=== PATIENT | male | born 1990 | race Caucasian/White ===

== ENCOUNTER 2016-12-02 03:22 | Emergency (ER) | payer SELFPAY ==
[~2016-12-02] VITALS: Ht 190.5 cm; Wt 158.8 kg
[~2016-12-02 03:22] MED LIST: AMLO10TA2; HYDR-2941 PO; HYDR-3812 PO; IBP800T PO; NAPR550T PO; OXYC-12 PO; PHEN-452 PO; TOPAMAX PO; TRIA1CAP PO
[2016-12-02] MEDS ORDERED: RT-ALBUTEROL/IPRATROPIUM 3 ML (DUONEB) VIAL INH ONE (04:15)
[2016-12-02] MEDS ORDERED: RX-ALBUTEROL INHALER (VENTOLIN HFA) 18 GM IH STA (04:46)
--- NOTE | 2016-12-02 04:53 | ED Respiratory ---
General Chief Complaint: Respiratory Problems Stated Complaint: SOB Nursing Triage Note: Pt c/o SOA and coughing for approx 10 days. Pt reports SOA is worse after talking. Source: patient Exam Limitations: no limitations History of Present Illness Time seen by provider: 03:55 Initial Comments This 26-year-old gentleman presents to the emergency room with complaints of cough and shortness of breath. He was treated with amoxicillin about one month ago but cough and shortness of breath persist. He denies any fever. He sometimes has a dull chest tightness centrally. He does not smoke. He denies any other symptoms. Talking tends to exacerbate his cough. Allergies and Home Medications Allergies Coded Allergies: No Known Drug Allergies (Verified , 10/09/08) Home Medications Amlodipine Besylate 10 Mg Tablet, #30 (Reported) Azithromycin 250 Mg Tablet, 250 MG PO UD, #6 TAKE 2 TABLETS ON DAY ONE THEN TAKE 1 TABLET DAILY FOR FOUR MORE DAYS Prescribed by: ARCHANA LOPEZ on 12/02/16453 Prednisone 20 Mg Tab, 20 MG PO DAILY, #5 Prescribed by: ARCHANA LOPEZ on 12/02/164 Constitutional: no symptoms reported EENTM: no symptoms reported Respiratory: see HPI Cardiovascular: no symptoms reported Gastrointestinal: no symptoms reported Genitourinary: no symptoms reported Musculoskeletal: no symptoms reported Skin: no symptoms reported Psychiatric/Neurological: No Symptoms Reported Hematologic/Lymphatic: No Symptoms Reported Past Jmwupor-Cwmdcy-Xkujis Hx Patient Social History Alcohol Use: Denies Use Recreational Drug Use: No Smoking Status: Never a Smoker Recent Foreign Travel: No Contact w/Someone Who Travel: No Recent Infectious Disease Expo: No Recent Hopitalizations: No Seasonal Allergies Seasonal Allergies: No Surgeries HX Surgeries: Yes (left ankle/left knee/right shoulder) Surgeries: Orthopedic Respiratory Hx Respiratory Disorders: No Cardiovascular Hx Cardiac Disorders: Yes (takes amlodipine "as needed") Cardiac Disorders: Hypertension, Syncope Neurological Hx Neurological Disorders: No Reproductive System Hx Reproductive Disorders: No Sexually Transmitted Disease: No Genitourinary Hx Genitourinary Disorders: No Gastrointestinal Hx Gastrointestinal Disorders: No Musculoskeletal Hx Musculoskeletal Disorders: Yes (BROKEN LEFT ANKLE, chronic chest pain) Musculoskeletal Disorders: Chronic Back Pain (history of vertebral fracture) Endocrine Hx Endocrine Disorders: Yes (prediabetes, morbid obesity) HEENT HX ENT Disorders: No Cancer Hx Cancer: No Psychosocial Hx Psychiatric Problems: No Blood Transfusions Hx Blood Disorders: No Family Medical History Significant Family History: No Pertinent Family Hx Physical Exam Vital Signs Vital Sign - Last 12Hours 12/02/16 03:36 Temp 99.4 Pulse 118 Resp 20 B/P (MAP) 165/102 Pulse Ox 97 O2 Delivery Room Air Capillary Refill : Less Than 3 Seconds General Appearance: WD/WN, no apparent distress, obese HEENT: PERRL/EOMI, normal ENT inspection, TMs normal, pharynx normal Neck: normal inspection Respiratory: no respiratory distress, no accessory muscle use, wheezing (slight ), other (slight tachypnea, talking triggers cough) Cardiovascular: regular rate, rhythm, no edema, no murmur Extremities: normal inspection, no pedal edema Neurologic/Psychiatric: pickle cutter II-XII nml as tested, no motor/sensory deficits, alert, normal mood/affect, oriented x 3 Skin: normal color, warm/dry Progress/Results/Core Measures Results/Orders My Orders Orders - ARCHANA PAYAN MD Albuterol/Ipra Inhalation Soln (Duoneb I (12/02/16 04:15) Svn Sm Volume Nebulizer Rt-Rfs (12/02/16 04:03) Chest Pa/Lat (2 View) (12/02/16 04:03) Rx-Albuterol Inhaler (Rx-Ventolin Hfa) (12/02/16 04:46) Rx-Albuterol Inhaler (Rx-Proair) (12/02/16 05:00) Medications Given in ED Vital Signs/I&O Vital Sign - Last 12Hours 12/02/16 12/02/16 12/02/16 03:36 04:10 05:15 Temp 99.4 99.4 Pulse 118 107 Resp 20 20 B/P (MAP) 165/102 Pulse Ox 97 94 96 O2 Delivery Room Air Blood Pressure Mean: 123 Progress Note : Progress Note Chest x-ray was unremarkable by my interpretation. Patient felt significantly better after a DuoNeb treatment. An albuterol inhaler was dispensed. Diagnostic Imaging Diagonstic Imaging: Xray Plain Films/CT/US/NM/MRI: chest Comments Two-view chest x-ray viewed by me. Report not yet available. No consolidation or infiltrate appreciated. No other acute abnormalities. Departure Impression Impression: Primary Impression: Acute bronchitis Qualified Codes: J20.9 - Acute bronchitis, unspecified Disposition: 01 HOME, SELF-CARE Condition: Improved Departure-Patient Inst. Decision time for Depature: 04:40 Referrals: [facility] (PCP/Family) Primary Care Physician Patient Instructions: Acute Bronchitis, Adult (DC) Add. Discharge Instructions: Follow-up with your primary care provider within the next week. You may use the inhaler up to 4 puffs every 4 hour period of time. Complete the steroids and antibiotic as prescribed. Return to care if symptoms worsen. Work toward weight loss to reduce strain on the respiratory system. All discharge instructions reviewed with patient and/or family. Voiced understanding. Scripts Azithromycin (Azithromycin) 250 Mg Tablet 250 MG PO UD, #6 TAB TAKE 2 TABLETS ON DAY ONE THEN TAKE 1 TABLET DAILY FOR FOUR MORE DAYS Prov: ARCHANA PAYAN MD 12/02/16 Prednisone (Prednisone) 20 Mg Tab 20 MG PO DAILY, #5 TAB Prov: ARCHANA PAYAN MD 12/02/16 Copy Copies To 1: ANDRÉS PATEL MD, JOSHUA T MD Dec 02, 2016 04:53
[2016-12-02] MEDS ORDERED: AZIT250T5 PO (04:54)
[2016-12-02] MEDS ORDERED: PRD20T PO (04:54)
[2016-12-02] MEDS ORDERED: RX-ALBUTEROL INHALER (PROAIR) 8 GM IH ONE (05:00)
[2016-12-02 05:15] VITALS: BP 157/100
--- NOTE | 2016-12-02 06:22 | Diagnostic Imaging Report ---
Clinical indication: Patient with shortness of breath, chest pain x1 month. Exam: Chest x-ray PA and lateral views. Comparisons: Chest x-ray dated 06/08/2016. Findings: Lungs/pleura: Suspected mild bibasilar atelectasis. Otherwise, lungs are clear. There is no pneumothorax. There is no pleural effusion. Mediastinum: Unremarkable. Pulmonary vasculature: Unremarkable. Heart: Unremarkable. Bones/extrathoracic soft tissue: Unremarkable. Impression: There is mild bibasilar atelectasis. Otherwise, there is no radiographic evidence of acute cardiopulmonary process. Dictated by: Dictated on workstation # [id number]
== END 2016-12-02 05:15 | disposition home or self-care (01) ==
LOC: EDUNIT# 03:22 → ER 03:24
DX: J20.9 Acute bronchitis, unspecified (principal); I10 Essential (primary) hypertension; E66.9 Obesity, unspecified
CPT/HCPCS: 71020; 94640; 99283

== ENCOUNTER 2016-12-06 17:42 | Emergency (ER) | payer SELFPAY ==
[~2016-12-06] VITALS: Ht 193 cm; Wt 158.8 kg
[~2016-12-06 17:42] MED LIST changes: +AZIT250T5 PO; +PRD20T PO
--- NOTE | 2016-12-06 18:29 | Diagnostic Imaging Report ---
INDICATION: Cough. Continuously chocked up after talking. TECHNIQUE: Two view chest 6:28 p.m. CORRELATION STUDY: 12/02/2016 FINDINGS: The heart size, mediastinal configuration and pulmonary vasculature are within normal limits. The lungs are clear with no consolidating infiltrate. There is no significant pleural effusion or pneumothorax. Visualized osseous structures are unremarkable. IMPRESSION: 1. Negative for acute findings of the chest. Dictated by: Dictated on workstation # [id number]
[2016-12-06] MEDS ORDERED: ACET-789 PO (18:46)
[2016-12-06] MEDS ORDERED: RT-ALBUINH IH (18:46)
--- NOTE | 2016-12-06 18:46 | ED Cough/URI ---
General Chief Complaint: Cough/Cold/Flu Symptoms Stated Complaint: BRONCHITIS/COUGH/THROAT DISCOMFORT Nursing Triage Note: AMB TO ED REPORTS WAS SEEN IN ED 4 DAY AGO WAS PUT ON Z PACK AND PREDISONE. Source: patient Exam Limitations: no limitations History of Present Illness Time seen by provider: 18:42 Initial Comments To ER with a persistent cough. Cough is nonproductive. He was seen here 4 days ago and put on azithromycin, prednisone and an inhaler. Denies any improvement. No fevers. Occasional nasal congestion for which he's been using nygr-hef-zcyrhuy Flonase. Timing/Duration: week Severity/Quality: dry cough Associated Symptoms: cough Allergies and Home Medications Allergies Coded Allergies: No Known Drug Allergies (Verified , 10/09/08) Home Medications Amlodipine Besylate 10 Mg Tablet, #30 (Reported) Azithromycin 250 Mg Tablet, 250 MG PO UD, #6 TAKE 2 TABLETS ON DAY ONE THEN TAKE 1 TABLET DAILY FOR FOUR MORE DAYS Prescribed by: ARCHANA LOPEZ on 12/02/164 Prednisone 20 Mg Tab, 20 MG PO DAILY, #5 Prescribed by: ARCHANA LOPEZ on 12/02/164 Constitutional: see HPI EENTM: see HPI Respiratory: no symptoms reported Cardiovascular: no symptoms reported Genitourinary: no symptoms reported Musculoskeletal: no symptoms reported Past Ykrvfsj-Awliaa-Xkmnrm Hx Patient Social History Alcohol Use: Denies Use Recreational Drug Use: No Smoking Status: Never a Smoker Recent Foreign Travel: No Contact w/Someone Who Travel: No Recent Infectious Disease Expo: No Recent Hopitalizations: No Seasonal Allergies Seasonal Allergies: No Surgeries HX Surgeries: Yes (left ankle/left knee/right shoulder) Surgeries: Orthopedic Respiratory Hx Respiratory Disorders: No Cardiovascular Hx Cardiac Disorders: Yes (takes amlodipine "as needed") Cardiac Disorders: Hypertension, Syncope Neurological Hx Neurological Disorders: No Reproductive System Hx Reproductive Disorders: No Sexually Transmitted Disease: No Genitourinary Hx Genitourinary Disorders: No Gastrointestinal Hx Gastrointestinal Disorders: No Musculoskeletal Hx Musculoskeletal Disorders: Yes (BROKEN LEFT ANKLE, chronic chest pain) Musculoskeletal Disorders: Chronic Back Pain Endocrine Hx Endocrine Disorders: Yes (prediabetes, morbid obesity) HEENT HX ENT Disorders: No Cancer Hx Cancer: No Psychosocial Hx Psychiatric Problems: No Blood Transfusions Hx Blood Disorders: No Family Medical History Significant Family History: No Pertinent Family Hx Physical Exam Vital Signs Vital Sign - Last 12Hours 12/06/16 17:53 Temp 98.3 Pulse 101 Resp 18 B/P (MAP) 133/64 O2 Delivery Room Air Capillary Refill : Less Than 3 Seconds General Appearance: WD/WN, no apparent distress, obese, other (patient does have a cough that pronounced when he is talking.) HEENT: PERRL/EOMI, normal ENT inspection Neck: non-tender, full range of motion Respiratory: no respiratory distress, no accessory muscle use Gastrointestinal: normal bowel sounds, non tender, soft Neurologic/Psychiatric: alert, normal mood/affect, oriented x 3 Skin: normal color, warm/dry Progress/Results/Core Measures Results/Orders My Orders Orders - RAJNI MELENDEZ APRN Chest Pa/Lat (2 View) (12/06/16 18:04) Vital Signs/I&O Vital Sign - Last 12Hours 12/06/16 17:53 Temp 98.3 Pulse 101 Resp 18 B/P (MAP) 133/64 O2 Delivery Room Air Blood Pressure Mean: 87 Departure Impression Impression: Primary Impression: Bronchitis Additional Impression: Influenza Disposition: 01 HOME, SELF-CARE Condition: Stable Departure-Patient Inst. Decision time for Depature: 18:44 Referrals: [facility] (PCP/Family) Primary Care Physician Patient Instructions: Cough, Adult (DC) Add. Discharge Instructions: 1. Medication as directed 2. This cough is likely viral in nature which explains why you didn't improve with steroids. This may take 2-3 weeks to improve 3. All discharge instructions reviewed with patient and/or family. Voiced understanding. Scripts Acetaminophen with Codeine (Tylenol with Codeine #3 Tablet) 1 Each Tablet 1 EACH PO Q6H Y for COUGH, #14 TAB Prov: RAJNI MELENDEZ APRN 12/06/16 Albuterol Sulfate (PROAIR HFA) 1 Puff Puff 2 PUFF IH Q4H, #1 EACH 1 PUFF = 90 MCG Prov: RAJNI MELENDEZ APRN 12/06/16 RAJNI MELENDEZ APRN December 06, 2016 18:46
[2016-12-06 18:50] VITALS: BP 182/93
== END 2016-12-06 18:50 | disposition home or self-care (01) ==
LOC: EDUNIT# 17:42 → ER 17:44
DX: J40 Bronchitis, not specified as acute or chronic (principal); J10.1 Influenza due to other identified influenza virus with other respiratory manifestations
CPT/HCPCS: 71020; 99282

== ENCOUNTER 2017-12-12 16:31 | Emergency (ER) | payer SELFPAY ==
[~2017-12-12] VITALS: Ht 190.5 cm; Wt 140.6 kg
[~2017-12-12 16:31] MED LIST changes: +ACET-789 PO; +ACHD5005 PO; +AZIT250T12 PO; -AZIT250T5 PO; -HYDR-3812 PO; +RT-ALBUINH IH
--- NOTE | 2017-12-12 16:48 | ED Back Pain ---
General Chief Complaint: Back Problems Stated Complaint: R SIDE LOWER BACK PAIN Source of Information: Patient Exam Limitations: No Limitations History of Present Illness Date Seen by Provider: December 12, 2017 Time Seen by Provider: 16:46 Initial Comments To ER with complaints of right posterior flank pain. This has been intermittent for about 2 weeks. At the onset of this pain it was described as knifelike very sharp and unchanged by movement. He made an appointment with primary care for the next day, but upon awakening the next morning the pain was gone. He decided this was likely musculoskeletal and canceled his doctor's appointment. This then recurred today, no radiation of the pain, no fevers or chills, no nausea or vomiting and no dysuria. Minimal anterior right sided abdominal pain. No history of this. Timing/Duration: Getting Worse, Intermittent Severity: Moderate Associated Symptoms: lower back pain Allergies and Home Medications Allergies Coded Allergies: No Known Drug Allergies (Verified , 10/09/08) Home Medications Acetaminophen with Codeine 1 Each Tablet, 1 EACH PO Q6H PRN for COUGH Prescribed by: RAJNI MELENDEZ on 12/06/161845 Albuterol Sulfate 1 Puff Puff, 2 PUFF IH Q4H 1 PUFF = 90 MCG Prescribed by: RAJNI MELENDEZ on 12/06/161845 Azithromycin 250 Mg Tablet, 250 MG PO UD TAKE 2 TABLETS ON DAY ONE THEN TAKE 1 TABLET DAILY FOR FOUR MORE DAYS Prescribed by: ARCHANA LOPEZ on 12/02/16453 Cyclobenzaprine HCl 5 Mg Tablet, 5 MG PO TID Prescribed by: RAJNI MELENDEZ on 12/12/171748 Naproxen 500 Mg Tablet, 500 MG PO BID PRN for PAIN-MILD TO MODERATE Prescribed by: RAJNI MELENDEZ on 12/12/171748 Prednisone 20 Mg Tab, 20 MG PO DAILY Prescribed by: ARCHANA LOPEZ on 12/02/16 045 Patient Home Medication List Home Medication List Reviewed: Yes Constitutional: see HPI; No chills, No fever EENTM: see HPI Respiratory: no symptoms reported Cardiovascular: no symptoms reported Genitourinary: no symptoms reported Musculoskeletal: see HPI, back pain Skin: no symptoms reported Psychiatric/Neurological: No Symptoms Reported Past Xlwotmd-Qblipb-Hobffa Hx Patient Social History Recent Foreign Travel: No Contact w/Someone Who Travel: No Recent Hopitalizations: No Seasonal Allergies Seasonal Allergies: No Past Medical History Surgeries: Yes (left ankle/left knee/right shoulder) Orthopedic Respiratory: No Cardiac: Yes (takes amlodipine "as needed") Hypertension, Syncope Neurological: No Reproductive Disorders: No Sexually Transmitted Disease: No Gastrointestinal: No Musculoskeletal: Yes (BROKEN LEFT ANKLE, chronic chest pain) Chronic Back Pain Endocrine: Yes (prediabetes, morbid obesity) Cancer: No Psychosocial: No Blood Disorders: No Family Medical History No Pertinent Family Hx Physical Exam Vital Signs Vital Signs - First Documented 12/12/17 16:56 Temp 98.0 Pulse 105 Resp 18 B/P (MAP) 185/97 (126) Pulse Ox 99 Capillary Refill : General Appearance: No Apparent Distress, WD/WN, Obese HEENT: PERRL/EOMI, TMs Normal Neck: Full Range of Motion, Normal Inspection Respiratory: No Accessory Muscle Use, No Respiratory Distress Gastrointestinal: Normal Bowel Sounds, Soft, Other (Minimal right-sided abdominal tenderness but no guarding or rebound) Extremity: Normal Capillary Refill, Normal Inspection Neurologic/Psychiatric: Alert, Oriented x3, No Motor/Sensory Deficits Skin: Normal Color, Warm/Dry Progress/Results/Core Measures Results/Orders Lab Results Laboratory Tests Test 12/12/17 16:38 12/12/17 16:52 Range/Units Urine Color YELLOW Urine Clarity CLEAR Urine pH 7 5-9 Urine Specific [place] 1.010 L 1.016-1.022 Urine Protein NEGATIVE NEGATIVE Urine Glucose (UA) NEGATIVE NEGATIVE Urine Ketones NEGATIVE NEGATIVE Urine Nitrite NEGATIVE NEGATIVE Urine Bilirubin NEGATIVE NEGATIVE Urine Urobilinogen NORMAL NORMAL MG/DL Urine Leukocyte Esterase NEGATIVE NEGATIVE Urine RBC (Auto) NEGATIVE NEGATIVE Urine RBC NONE /HPF Urine WBC NONE /HPF Urine Squamous Epithelial Cells 0-2 /HPF Urine Crystals NONE /LPF Urine Bacteria NONE /HPF Urine Casts NONE /LPF Urine Mucus NEGATIVE /LPF Urine Culture Indicated NO White Blood Count 9.3 4.3-11.0 10^3/uL Red Blood Count 5.30 4.35-5.85 10^6/uL Hemoglobin 15.0 13.3-17.7 G/DL Hematocrit 43 40-54 % Mean Corpuscular Volume 81 80-99 FL Mean Corpuscular Hemoglobin 28 25-34 PG Mean Corpuscular Hemoglobin Concent 35 32-36 G/DL Red Cell Distribution Width 13.9 10.0-14.5 % Platelet Count 397 130-400 10^3/uL Mean Platelet Volume 9.1 7.4-10.4 FL Neutrophils (%) (Auto) 70 42-75 % Lymphocytes (%) (Auto) 23 12-44 % Monocytes (%) (Auto) 5 0-12 % Eosinophils (%) (Auto) 2 0-10 % Basophils (%) (Auto) 0 0-10 % Neutrophils # (Auto) 6.5 1.8-7.8 X 10^3 Lymphocytes # (Auto) 2.2 1.0-4.0 X 10^3 Monocytes # (Auto) 0.4 0.0-1.0 X 10^3 Eosinophils # (Auto) 0.2 0.0-0.3 10^3/uL Basophils # (Auto) 0.0 0.0-0.1 10^3/uL Sodium Level 140 135-145 MMOL/L Potassium Level 4.3 3.6-5.0 MMOL/L Chloride Level 106 98-107 MMOL/L Carbon Dioxide Level 27 21-32 MMOL/L Anion Gap 7 5-14 MMOL/L Blood Urea Nitrogen 8 7-18 MG/DL Creatinine 0.83 0.60-1.30 MG/DL Estimat Glomerular Filtration Rate > 60 BUN/Creatinine Ratio 10 Glucose Level 110 H 70-105 MG/DL Calcium Level 9.5 8.5-10.1 MG/DL Total Bilirubin 0.4 0.1-1.0 MG/DL Aspartate Amino Transf (AST/SGOT) 18 5-34 U/L Alanine Aminotransferase (ALT/SGPT) 27 0-55 U/L Alkaline Phosphatase 67 40-136 U/L Total Protein 7.2 6.4-8.2 GM/DL Albumin 4.3 3.2-4.5 GM/DL My Orders Orders - RAJNI MELENDEZ APRN Iv Heplock-Insert (Order) (12/12/17 16:45) Cbc With Automated Diff (12/12/17 16:45) Comprehensive Metabolic Panel (12/12/17 16:45) Ua Culture If Indicated (12/12/17 16:45) Ct Abd/Pelvis Wo(Kidney Stone) (12/12/17 16:45) Ketorolac Injection (Toradol Injection) (12/12/17 17:00) Us Scrotum (Testicle) [id number] (12/12/17 17:59) Medications Given in ED Current Medications Medications Dose Ordered Sig/Liliya Route Start Time Stop Time Status Last Admin Dose Admin Ketorolac Tromethamine 30 mg ONCE ONCE IVP 12/12/17 17:00 12/12/17 17:01 DC 12/12/17 17:23 30 MG Vital Signs/I&O 12/12/17 12/12/17 16:56 18:54 Temp 98.0 Pulse 105 93 Resp 18 18 B/P (MAP) 185/97 (126) 168/103 Pulse Ox 99 98 Diagnostic Imaging Diagonstic Imaging: CT Comments NAME: SUZAN RANGEL MED REC#: [id number] PT STATUS: REG ER : 1990 PHYSICIAN: RAJNI MELENDEZ APRN ADMIT DATE: 12/12/17/ER Draft Date of Exam:12/12/17 CT ABD/PELVIS WO(KIDNEY STONE) PROCEDURE: CT urinary tract, rule out kidney stone. TECHNIQUE: Multiple contiguous axial images were obtained through the abdomen and pelvis without the use of intravenous contrast. INDICATION: Right posterior kidney pain. FINDINGS: The liver, gallbladder, and bile ducts are normal. The spleen, pancreas, and adrenals are normal. The kidneys, ureters, and bladder are normal. The prostate is normal. No acute appendicitis is evident. No acute bowel abnormality is seen. There are several mildly prominent lymph nodes seen in the mesentery in the right lower quadrant with the largest measuring approximately 7 x 17 mm. There is no free intraperitoneal air or fluid. There is no acute bony abnormality. IMPRESSION: There are mildly prominent lymph nodes seen in the mesentery in the right lower quadrant which may be related to mesenteric adenitis. No other abnormality is seen. Dictated on workstation # [id number] Dict: 12/12/17 1728 Trans: 12/12/17 1735 [id number] Interpreted by: ANNIE BROOKS MD Electronically signed by: Departure Communication (Admissions) 1800- patient did report to the RN that he has noticed a small bump on the posterior left testicle about a month ago. He did see his primary care provider for it who told him to keep an eye on it and if it got larger they would proceed with imaging. He feels like the size has gone down but still is concerning to him. By my exam testicles are equal in size, normal in consistency , the left testicle is with a small palpable nodule about pinhead sized which would seem to be an epididymal cyst. I will get a testicular ultrasound given the lymphadenopathy seen on CT abdomen and pelvis. Impression Primary Impression: Right flank pain Additional Impression: Mesenteric adenitis Disposition: HOME, SELF-CARE Condition: Stable Departure-Patient Inst. Decision time for Depature: 17:46 Referrals: [facility]/ (PCP) Primary Care Physician MILTON DRUMMOND (Family) Primary Care Physician Patient Instructions: Low Back Pain (DC) Add. Discharge Instructions: 1. Follow-up with your doctor This week for recheck 2. Return to ER for any worsening symptoms, fevers or other concerns. 3. Medication as directed discharge instructions reviewed with patient and/or family. Voiced understanding. Scripts Cyclobenzaprine HCl (Cyclobenzaprine HCl) 5 Mg Tablet 5 MG PO TID, #21 TAB Prov: RAJNI MELENDEZ APRN 12/12/17 Naproxen (Naprosyn) 500 Mg Tablet 500 MG PO BID PRN for PAIN-MILD TO MODERATE, #30 TAB Prov: RAJNI MELENDEZ APRN 12/12/17 Copy Copies To 1: KVNG GARCIA PETER J APRN December 12, 2017 16:48
[2017-12-12] MEDS ORDERED: KETOROLAC 30 MG/ML VIAL IVP ONE (17:00)
[2017-12-12 17:03] LABS: BASOPHILS % (AUTO) 0 % (0-10); EOSINOPHILS # (AUTO) 0.2 10^3/uL (0.0-0.3); EOSINOPHILS % (AUTO) 2 % (0-10); HEMATOCRIT 43 % (40-54); LYMPHOCYTES # (AUTO) 2.2 X 10^3 (1.0-4.0); LYMPHOCYTES % (AUTO) 23 % (12-44); MEAN CORPUSCULAR HEMOGLOBIN 28 PG (25-34); MEAN CORPUSCULAR HGB CONC 35 G/DL (32-36); MEAN CORPUSCULAR VOLUME 81 FL (80-99); MEAN PLATELET VOLUME 9.1 FL (7.4-10.4); MONOCYTES # (AUTO) 0.4 X 10^3 (0.0-1.0); MONOCYTES % (AUTO) 5 % (0-12); NEUTROPHILS # (AUTO) 6.5 X 10^3 (1.8-7.8); NEUTROPHILS % (AUTO) 70 % (42-75); PLATELET COUNT 397 10^3/uL (130-400); RED CELL DISTRIBUTION WIDTH 13.9 % (10.0-14.5); WHITE BLOOD COUNT 9.3 10^3/uL (4.3-11.0)
[2017-12-12 17:18] LABS: BILIRUBIN,URINE NEGATIVE (NEGATIVE); CLARITY,URINE CLEAR; COLOR,URINE YELLOW; GLUCOSE, URINE (UA) NEGATIVE (NEGATIVE); KETONES,URINE NEGATIVE (NEGATIVE); LEUKOCYTE ESTERASE ,URINE NEGATIVE (NEGATIVE); NITRITE,URINE NEGATIVE (NEGATIVE); PH,URINE 7 (5-9); PROTEIN,URINE NEGATIVE (NEGATIVE); UROBILINOGEN,URINE NORMAL (NORMAL)
[2017-12-12 17:23] LABS: ALANINE AMINOTRANSFERASE 27 U/L (0-55); ALBUMIN 4.3 GM/DL (3.2-4.5); ALKALINE PHOSPHATASE 67 U/L (40-136); BILIRUBIN,TOTAL 0.4 MG/DL (0.1-1.0); BUN/CREATININE RATIO 10; CALCIUM 9.5 MG/DL (8.5-10.1); CARBON DIOXIDE 27 MMOL/L (21-32); CHLORIDE 106 MMOL/L (98-107); CREATININE SERUM 0.83 MG/DL (0.60-1.30); GFR ESTIMATED > 60; GLUCOSE 110 MG/DL (70-105); POTASSIUM 4.3 MMOL/L (3.6-5.0); SODIUM 140 MMOL/L (135-145); TOTAL PROTEIN 7.2 GM/DL (6.4-8.2)
[2017-12-12 17:33] LABS: SQUAMOUS EPITHELIAL CELL,UR 0-2 /HPF
--- NOTE | 2017-12-12 17:36 | Diagnostic Imaging Report ---
PROCEDURE: CT urinary tract, rule out kidney stone. TECHNIQUE: Multiple contiguous axial images were obtained through the abdomen and pelvis without the use of intravenous contrast. INDICATION: Right posterior kidney pain. FINDINGS: The liver, gallbladder, and bile ducts are normal. The spleen, pancreas, and adrenals are normal. The kidneys, ureters, and bladder are normal. The prostate is normal. No acute appendicitis is evident. No acute bowel abnormality is seen. There are several mildly prominent lymph nodes seen in the mesentery in the right lower quadrant with the largest measuring approximately 7 x 17 mm. There is no free intraperitoneal air or fluid. There is no acute bony abnormality. IMPRESSION: There are mildly prominent lymph nodes seen in the mesentery in the right lower quadrant which may be related to mesenteric adenitis. No other abnormality is seen. Dictated by: Dictated on workstation # [id number]
[2017-12-12] MEDS ORDERED: NAPR-1071 PO (17:49)
[2017-12-12] MEDS ORDERED: CYCL5TAB PO (17:49)
--- NOTE | 2017-12-12 18:52 | Diagnostic Imaging Report ---
INDICATION: Palpable lump. FINDINGS: The testicles appeared normal. Color Doppler blood flow to the testicles and nonfocal epididymides normal. No hernia, fluid collection, hydrocele, or varicocele. There is no evidence for torsion or orchitis. IMPRESSION: Normal scrotal Doppler and ultrasound exam. Dictated by: Dictated on workstation # [id number]
[2017-12-12 18:54] VITALS: BP 168/103
== END 2017-12-12 18:54 | disposition home or self-care (01) ==
LOC: EDUNIT# 16:31 → ER 16:33
DX: I88.0 Nonspecific mesenteric lymphadenitis (principal); I10 Essential (primary) hypertension; E66.01 Morbid (severe) obesity due to excess calories; Z86.73 Personal history of transient ischemic attack (TIA), and cerebral infarction without residual deficits; Z79.51 Long term (current) use of inhaled steroids; Z79.52 Long term (current) use of systemic steroids; Z68.38 Body mass index [BMI] 38.0-38.9, adult
CPT/HCPCS: 36415; 74176; 76870; 80053; 81000; 85025; 96374

== ENCOUNTER → 2018-09-28 | Outpatient (CLI) | payer OTHER ==
[~2018-09-28] MED LIST changes: -AMLO10TA2; +AMLO10TA7; +CYCL5TAB PO; +NAPR-1071 PO
== END ==
LOC: SLEEP 15:11
PROVIDERS: ATTEND Surgery
DX: G47.33 Obstructive sleep apnea (adult) (pediatric) (principal); G47.00 Insomnia, unspecified; I10 Essential (primary) hypertension; E66.9 Obesity, unspecified; F39 Unspecified mood [affective] disorder

== ENCOUNTER → 2018-09-29 | Outpatient (CLI) | payer OTHER ==
--- NOTE | 2018-09-29 09:30 | Diagnostic Imaging Report ---
PROCEDURE: US Gallbladder. TECHNIQUE: Multiple real-time grayscale images were obtained over the right upper quadrant in various projections. INDICATION: Gastroesophageal reflux disease. FINDINGS: Liver is enlarged at 19.5 cm. No discrete liver mass is identified. The portal vein appears patent and shows normal direction of flow. Gallbladder is without stones or sludge. No wall thickening or biliary ductal dilatation is seen. Visualized pancreas is unremarkable. Right kidney is unremarkable. There is no ascites. IMPRESSION: 1. Hepatomegaly. 2. No evidence of cholelithiasis or acute cholecystitis. Dictated by: Dictated on workstation # [id number]
== END ==
LOC: RAD 08:19
PROVIDERS: ATTEND Surgery
DX: K21.9 Gastro-esophageal reflux disease without esophagitis (principal); R16.0 Hepatomegaly, not elsewhere classified
CPT/HCPCS: 76705

== ENCOUNTER 2018-12-10 14:08 | Emergency (ER) | payer SELFPAY ==
[~2018-12-10] VITALS: Ht 190.5 cm; Wt 140.6 kg
[2018-12-10] MEDS ORDERED: methylPREDNISolone 125 MG (Solu-MEDROL) VIAL ONE (14:15)
[2018-12-10] MEDS ORDERED: diphenhydrAMINE 50 MG/ML INJ (BENADRYL) ONE (14:15)
[2018-12-10] MEDS ORDERED: HYDROCORTISONE 1% CREAM 30 GM TUBE ONE (14:15)
[2018-12-10] MEDS ORDERED: PRD20T PO ×2 (14:24→15:06)
--- NOTE | 2018-12-10 14:24 | ED Integumentary General ---
General Chief Complaint: Allergic Reaction Stated Complaint: ALLERGIC REACTION/FACIAL SWELLING/SOB Source: patient Exam Limitations: no limitations History of Present Illness Date Seen by Provider: December 10, 2018 Time Seen by Provider: 14:19 Initial Comments To ER per private vehicle with reports of allergic reaction facial swelling shortness of breath and anxiety. This began last night at about 10 PM. His sister his hair and his serrano for him with black hair dye. He had immediate itching to his scalp. Today he feels like his face is burning and itching, lips are swelling and is difficult to breathe. Timing/Duration: constant Severity: moderate Location: scalp, face Associated Symptoms: denies symptoms Allergies and Home Medications Allergies Coded Allergies: No Known Drug Allergies (Verified , 10/09/08) Home Medications Acetaminophen with Codeine 1 Each Tablet, 1 EACH PO Q6H PRN for COUGH Prescribed by: RAJNI MELENDEZ on 12/06/161845 Albuterol Sulfate 1 Puff Puff, 2 PUFF IH Q4H 1 PUFF = 90 MCG Prescribed by: RAJNI MELENDEZ on 12/06/161845 Azithromycin 250 Mg Tablet, 250 MG PO UD TAKE 2 TABLETS ON DAY ONE THEN TAKE 1 TABLET DAILY FOR FOUR MORE DAYS Prescribed by: ARCHANA LOPEZ on 12/02/16 045 Cyclobenzaprine HCl 5 Mg Tablet, 5 MG PO TID Prescribed by: RAJNI MELENDEZ on 12/12/17 174 Naproxen 500 Mg Tablet, 500 MG PO BID PRN for PAIN-MILD TO MODERATE Prescribed by: RAJNI MELENDEZ on 12/12/17 174 Prednisone 20 Mg Tab, 20 MG PO DAILY Prescribed by: ARCHANA LOPEZ on 12/02/16 0454 Prednisone 20 Mg Tab, 40 MG PO DAILY Prescribed by: RAJNI MELENDEZ on 12/10/18 1424 Patient Home Medication List Home Medication List Reviewed: Yes Review of Systems Review of Systems Constitutional: see HPI EENTM: see HPI Respiratory: see HPI, short of breath Genitourinary: no symptoms reported Musculoskeletal: no symptoms reported Skin: see HPI Psychiatric/Neurological: No Symptoms Reported Past Vmpkhwb-Mqyjdn-Nbmjfn Hx Patient Social History Recent Foreign Travel: No Contact w/Someone Who Travel: No Recent Hopitalizations: No Seasonal Allergies Seasonal Allergies: No Past Medical History Surgeries: Yes (left ankle/left knee/right shoulder,) Orthopedic, Penile Implant Respiratory: No Cardiac: Yes (takes amlodipine "as needed") Hypertension, Syncope Neurological: No Reproductive Disorders: No Sexually Transmitted Disease: No Genitourinary: No Gastrointestinal: No Musculoskeletal: Yes (BROKEN LEFT ANKLE, chronic chest pain) Chronic Back Pain Endocrine: Yes (prediabetes, morbid obesity) Cancer: No Psychosocial: Yes Depression Integumentary: No Blood Disorders: No Family Medical History No Pertinent Family Hx Physical Exam Vital Signs Capillary Refill : General Appearance: WD/WN, no apparent distress HEENT: PERRL/EOMI, normal ENT inspection, other (there is erythema of the scalp pretty well demarcated at the borders of the scalp for the hair dye was not applied. There is some erythema to the serrano region as well. There is no swelling of the uvula or any part of the oral cavity. Lungs are clear no wheezing no stridor. No urticaria or rash elsewhere, this is all confined to the area of contact with dye.) Neurologic/Psychiatric: alert, normal mood/affect, oriented x 3 Skin: normal color, warm/dry (as above) Skin Problem Character: erythema Progress/Results/Core Measures Results/Orders My Orders Orders - RAJNI MELENDEZ APRN Diphenhydramine Injection (Benadryl Inje (12/10/18 14:30) Methylprednisolone Sod Succ (Solu-Medrol (12/10/18 14:30) Hydrocortisone 1% Cream (Hydrocortisone (12/10/18 21:00) Diphenhydramine Injection (Benadryl Inje (12/10/18 14:15) Hydrocortisone 1% Cream (Hydrocortisone (12/10/18 14:15) Methylprednisolone Sod Succ (Solu-Medrol (12/10/18 14:15) Medications Given in ED Current Medications Medications Dose Ordered Sig/Liliya Route Start Time Stop Time Status Last Admin Dose Admin Diphenhydramine HCl 25 mg ONCE ONCE IVP 12/10/18 14:30 12/10/18 14:31 DC 12/10/18 14:21 25 MG Methylprednisolone Sodium Succinate 125 mg ONCE ONCE IVP 12/10/18 14:30 12/10/18 14:31 DC 12/10/18 14:28 125 MG Departure Impression Primary Impression: Contact dermatitis Qualified Codes: L23.9 - Allergic contact dermatitis, unspecified cause Disposition: HOME, SELF-CARE Condition: Stable Departure-Patient Inst. Decision time for Depature: 14:23 Referrals: [facility] (PCP) Primary Care Physician MILTON DRUMMOND (Family) Primary Care Physician Patient Instructions: Contact Dermatitis (DC) Add. Discharge Instructions: 1. Fly the topical hydrocortisone cream twice daily for the next one or 2 days. You can use Benadryl one tablet every 4-6 hours as needed for any severe itching. Take steroids as directed. All discharge instructions reviewed with patient and/or family. Voiced understanding. Scripts Prednisone (Prednisone) 20 Mg Tab 40 MG PO DAILY, #4 TAB 0 Refills Prov: RAJNI MELENDEZ APRN 12/10/18 RAJNI MELENDEZ APRN December 10, 2018 14:24
[2018-12-10] MEDS ORDERED: methylPREDNISolone 125 MG (Solu-MEDROL) VIAL IVP ONE (14:30)
[2018-12-10] MEDS ORDERED: diphenhydrAMINE 50 MG/ML INJ (BENADRYL) IVP ONE (14:30)
[2018-12-10 15:15] VITALS: BP 144/89
[2018-12-10] MEDS ORDERED: HYDROCORTISONE 1% CREAM 30 GM TUBE TOP SCH (21:00)
== END 2018-12-10 15:15 | disposition home or self-care (01) ==
LOC: EDUNIT# 14:08 → ER 14:09
DX: L23.9 Allergic contact dermatitis, unspecified cause (principal); F41.9 Anxiety disorder, unspecified; I10 Essential (primary) hypertension; E66.01 Morbid (severe) obesity due to excess calories; F32.9 Major depressive disorder, single episode, unspecified; Z79.52 Long term (current) use of systemic steroids; Z98.890 Other specified postprocedural states
CPT/HCPCS: 96374; 96375

== ENCOUNTER 2021-01-05 08:29 | Emergency (ER) | payer MEDICAID ==
[~2021-01-05] VITALS: Ht 193 cm; Wt 142.0 kg
[~2021-01-05 08:29] MED LIST changes: +AMLO-251; -AMLO10TA7
[2021-01-05 08:35] VITALS: BP 134/110
--- NOTE | 2021-01-05 08:51 | ED General ---
General Chief Complaint: General Problems/Pain Stated Complaint: BI LAT FEET/HAND SWELLING, PAIN Nursing Triage Note: PT CO OF BILATERAL HAND AND FEET SWELLING AND PAIN LIKE NEEDLES POKING HIM. STATES STARTED LAST PM, STATES HAD CHILLS DURING NITE ONCE. Nursing Sepsis Screen: No Definite Risk Source of Information: Patient Exam Limitations: No Limitations History of Present Illness Date Seen by Provider: January 05, 2021 Time Seen by Provider: 08:30 Initial Comments Patient is a 30-year-old male who presents to the emergency department today wi th a chief complaint of bilateral hand and feet swelling and pain. Patient states that it feels like he has "vjok-stb-[id number]" on the bottom of his feet and states that it hurts to bear weight. He had this started suddenly last night. He also had an episode where he chilled all night long and shock. He denies any fevers. He had a little bit of a sore throat last night. He had a lit tle bit of an upset stomach yesterday while he was at a bonfire at his parents house. No sick contacts. No other rashes that he has noticed on his body. No nausea, vomiting or diarrhea currently. No problems with urination. No chronic cough. All other review of systems reviewed and negative except as stated above. Timing/Duration: 12 Hours Severity: Moderate Allergies and Home Medications Allergies Coded Allergies: No Known Drug Allergies (Verified , 10/09/08) Home Medications Acetaminophen with Codeine 1 Each Tablet, 1 EACH PO Q6H PRN for COUGH Prescribed by: RAJNI MELENDEZ on 12/06/161845 Albuterol Sulfate 1 Puff Puff, 2 PUFF IH Q4H 1 PUFF = 90 MCG Prescribed by: RAJNI MELENDEZ on 12/06/161845 Azithromycin 250 Mg Tablet, 250 MG PO UD TAKE 2 TABLETS ON DAY ONE THEN TAKE 1 TABLET DAILY FOR FOUR MORE DAYS Prescribed by: ARCHANA LOPEZ on 12/02/16453 Cyclobenzaprine HCl 5 Mg Tablet, 5 MG PO TID Prescribed by: RAJNI MELENDEZ on 12/12/171748 Naproxen 500 Mg Tablet, 500 MG PO BID PRN for PAIN-MILD TO MODERATE Prescribed by: RAJNI MELENDEZ on 12/12/171748 Prednisone 20 Mg Tab, 20 MG PO DAILY Prescribed by: ARCHANA LOPEZ on 12/02/16453 Prednisone 20 Mg Tab, 40 MG PO DAILY Prescribed by: RAJNI MELENDEZ on 12/10/18 7309 Patient Home Medication List Home Medication List Reviewed: Yes Review of Systems Review of Systems Constitutional: see HPI EENTM: no symptoms reported Respiratory: no symptoms reported Cardiovascular: no symptoms reported Gastrointestinal: no symptoms reported Genitourinary: no symptoms reported Musculoskeletal: other (Feet and hand swelling) Skin: other (Feet and hand swelling and a little bit of erythema to his palms and soles) All Other Systems Reviewed Negative Unless Noted: Yes Past Ybspwlq-Hkahhd-Zdablt Hx Patient Social History Alcohol Use: Denies Use Smoking Status: Never a Smoker 2nd Hand Smoke Exposure: No Recent Infectious Disease Expo: No Recent Hopitalizations: No Seasonal Allergies Seasonal Allergies: No Past Medical History Surgeries: Yes (left ankle/left knee/right shoulder,) Orthopedic, Penile Implant Respiratory: No Cardiac: Yes (takes amlodipine "as needed") Hypertension, Syncope Neurological: No Reproductive Disorders: No Sexually Transmitted Disease: No Genitourinary: No Gastrointestinal: No Musculoskeletal: Yes (BROKEN LEFT ANKLE, chronic chest pain) Chronic Back Pain Endocrine: Yes (prediabetes, morbid obesity) Cancer: No Psychosocial: Yes Depression Integumentary: No Blood Disorders: No Family Medical History No Pertinent Family Hx Physical Exam Vital Signs Vital Signs - First Documented 01/05/21 08:35 Temp 37.5 Pulse 109 Resp 18 B/P (MAP) 134/110 (118) Pulse Ox 98 Capillary Refill : Less Than 3 Seconds Height, Weight, BMI Height: 6'3.00" Weight: 310lbs. oz. 140.988108kn; 38.00 BMI Method:Stated General Appearance: No Apparent Distress, WD/WN Eyes: Bilateral Eye Normal Inspection, Bilateral Eye PERRL, Bilateral Eye EOMI HEENT: Normal ENT Inspection Neck: Full Range of Motion, Non Tender, Supple Respiratory: Lungs Clear, Normal Breath Sounds, No Accessory Muscle Use, No Respiratory Distress Cardiovascular: Regular Rate, Rhythm Back: Normal Inspection Extremity: Normal Capillary Refill, Normal Range of Motion, No Calf Tenderness, Inflammation, Pedal Edema, Swelling (Mild to moderate swelling noted in both of his hands as well as both of his feet with a little bit of erythema in all extremities) Neurologic/Psychiatric: Alert, Oriented x3, No Motor/Sensory Deficits, Normal Mood/Affect Skin: Normal Color, Warm/Dry Progress/Results/Core Measures Suspected Sepsis Recent Fever Within 48 Hours: No Infection Criteria Present: None New/Unexplained Altered Menta: No Sepsis Screen: No Definite Risk SIRS Temperature: Pulse: 109 Respiratory Rate: 18 Blood Pressure 134 /110 Mean: 118 Results/Orders My Orders Orders - IRVIN MOTTA MD Diphenhydramine Tablet (Benadryl Tablet) (01/05/21 09:00) Prednisone Tablet (Deltasone Tablet) (01/05/21 09:00) Vital Signs/I&O 01/05/21 08:35 Temp 37.5 Pulse 109 Resp 18 B/P (MAP) 134/110 (118) Pulse Ox 98 Capillary Refill : Less Than 3 Seconds Blood Pressure Mean: 118 Departure Impression Primary Impression: Hand and foot pain Qualified Codes: M79.643 - Pain in unspecified hand; M79.673 - Pain in unspecified foot Disposition: 01 HOME, SELF-CARE Condition: Stable Departure-Patient Inst. Decision time for Depature: 08:50 Referrals: [facility]/ (PCP) Primary Care Physician DIMITRIS PETERSON APRN (Family) Primary Care Physician Patient Instructions: Acute Pain, Adult (DC) Add. Discharge Instructions: Cool baths or soaks for your hands and feet. Take [id number] Benadryl 1 to 2 tablets every 4-6 hours as needed for itching, swelling, discomfort. Take the prednisone 50 mg once daily for the next 5 days. Follow-up with your primary care provider this week. Return to the emergency room for any new, concerning, worsening complaints Scripts Prednisone (Prednisone) 50 Mg Tab 50 MG PO DAILY, #5 TAB Prov: IRVIN MOTTA MD 01/05/21 IRVIN MOTTA MD January 05, 2021 08:51
[2021-01-05] MEDS ORDERED: PRD50T PO (08:53)
[2021-01-05] MEDS ORDERED: diphenhydrAMINE 25 MG TAB (BENADRYL) PO ONE (09:00)
[2021-01-05] MEDS ORDERED: predniSONE 20 MG TAB PO ONE (09:00)
== END 2021-01-05 09:02 | disposition home or self-care (01) ==
LOC: EDUNIT# 08:29 → ER 08:33
DX: M79.641 Pain in right hand (principal); M79.642 Pain in left hand; M79.671 Pain in right foot; M79.672 Pain in left foot; I10 Essential (primary) hypertension; G89.29 Other chronic pain; M54.9 Dorsalgia, unspecified; E66.01 Morbid (severe) obesity due to excess calories; Z68.38 Body mass index [BMI] 38.0-38.9, adult; Z79.1 Long term (current) use of non-steroidal anti-inflammatories (NSAID); Z79.891 Long term (current) use of opiate analgesic
CPT/HCPCS: 99283

== ENCOUNTER → 2021-08-02 | Emergency (ER) | payer MEDICAID ==
[~2021-08-02] MED LIST changes: +PRD50T PO
== END ==
LOC: EDUNIT# 18:36 → ER 18:38
DX: R50.9 Fever, unspecified (principal); R11.2 Nausea with vomiting, unspecified; R05.9 Cough, unspecified; R19.7 Diarrhea, unspecified; Z20.822 Contact with and (suspected) exposure to COVID-19
CPT/HCPCS: 87636

== ENCOUNTER 2021-10-31 02:29 | Emergency (ER) | payer MEDICAID ==
[~2021-10-31] VITALS: Ht 190.5 cm; Wt 140.6 kg
[2021-10-31] MEDS ORDERED: FLUT9.9S NS (03:37)
[2021-10-31] MEDS ORDERED: METH4TAB PO (03:37)
[2021-10-31] MEDS ORDERED: AZEL137S11 NS (03:37)
[2021-10-31] MEDS ORDERED: AMOX1TAB12 PO (03:37)
[2021-10-31] MEDS ORDERED: LORA1TAB59 PO (03:37)
--- NOTE | 2021-10-31 03:37 | ED Cough/URI ---
General Chief Complaint: Cough/Cold/Flu Symptoms Stated Complaint: CONGESTION,PAINFUL AROUND NOSE AREA Nursing Triage Note: Pt arrives via POV from home for c/o congestion et sinus pain; onset three weeks. Pt reports being seen at [facility] when symptoms started, states they were to refer him for sinus CT et MRI but states he has not heard from them as of yet. Pt reports worsening pain tonight, states "I'm miserable. I can't eat. I can't sleep." Airway patent, respirations even et unlabored. Source: patient History of Present Illness Date Seen by Provider: Oct 31, 2021 Time Seen by Provider: 02:52 Allergies and Home Medications Allergies Coded Allergies: No Known Drug Allergies (Verified , 10/09/08) Patient Home Medication List Acetaminophen with Codeine (Tylenol with Codeine #3 Tablet) 1 Each Tablet, 1 EACH PO Q6H PRN for COUGH Prescribed by: RAJNI MELENDEZ on 12/06/161845 Albuterol Sulfate (Proair Hfa) 1 Puff Puff, 2 PUFF IH Q4H Prescribed by: RAJNI MELENDEZ on 12/06/16 184 Amlodipine Besylate (Amlodipine Besylate) 10 Mg Tablet, (Reported) Entered as Reported by: ZEINAB WATKINS on 06/08/16 1043 Azithromycin (Azithromycin) 250 Mg Tablet, 250 MG PO UD Prescribed by: ARCHANA LOPEZ on 12/02/16 0454 Cyclobenzaprine HCl (Cyclobenzaprine HCl) 5 Mg Tablet, 5 MG PO TID Prescribed by: RAJNI MELENDEZ on 12/12/17 174 Naproxen (Naprosyn) 500 Mg Tablet, 500 MG PO BID PRN for PAIN-MILD TO MODERATE Prescribed by: RAJNI MELENDEZ on 12/12/17 174 Prednisone (Prednisone) 20 Mg Tab, 20 MG PO DAILY Prescribed by: ARCHANA LOPEZ on 12/02/16 0454 Prednisone (Prednisone) 20 Mg Tab, 40 MG PO DAILY Prescribed by: RAJNI MELENDEZ on 12/10/18 1506 Prednisone (Prednisone) 50 Mg Tab, 50 MG PO DAILY Prescribed by: IRVIN MOTTA on 01/05/21 0853 Past Koyjnrz-Ubhukq-Lqclhr Hx Patient Social History Tobacco Use?: No Use of E-Cig and/or Vaping dev: No Substance use?: No Alcohol Use?: No Pt feels they are or have been: No Immunizations Up To Date Influenza Vaccine Up-to-Date: Yes; Up-to-Date COVID19 Vaccine 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: [employer] Seasonal Allergies Seasonal Allergies: No Past Medical History Surgeries: Yes (left ankle/left knee/right shoulder,) Orthopedic, Penile Implant Respiratory: No Cardiac: Yes (takes amlodipine "as needed") Hypertension, Syncope Neurological: No Reproductive Disorders: No Sexually Transmitted Disease: No Genitourinary: No Gastrointestinal: No Musculoskeletal: Yes (BROKEN LEFT ANKLE, chronic chest pain) Chronic Back Pain Endocrine: Yes (prediabetes, morbid obesity) Cancer: No Psychosocial: Yes Depression Integumentary: No Blood Disorders: No Family Medical History No Pertinent Family Hx Physical Exam Vital Signs - First Documented 10/31/21 02:40 Temp 36.8 Pulse 81 Resp 16 B/P (MAP) 168/101 (123) Pulse Ox 98 O2 Delivery Room Air Capillary Refill : Less Than 3 Seconds Height: 6'3.00" Weight: 310lbs. oz. 140.319988wq; 38.00 BMI Method:Stated Progress/Results/Core Measures Suspected Sepsis SIRS Temperature: Pulse: 81 Respiratory Rate: 16 Blood Pressure 168 /101 Mean: 123 Results/Orders Lab Results Laboratory Tests Test 10/31/21 02:45 Range/Units Influenza Type A (RT-PCR) Not Detected Not Detecte Influenza Type B (RT-PCR) Not Detected Not Detecte SARS-CoV-2 RNA (RT-PCR) Not Detected Not Detecte My Orders Orders - BAKARI ELIAS DO Covid 19 Inhouse Test (10/31/21 02:51) Influenza A And B By Pcr (10/31/21 02:51) Isolation Central Supply Req (10/31/21 02:51) Vital Signs/I&O 10/31/21 10/31/21 02:40 02:40 Temp 36.8 Pulse 81 Resp 16 B/P (MAP) 168/101 (123) Pulse Ox 98 O2 Delivery Room Air Room Air Capillary Refill : Less Than 3 Seconds Blood Pressure Mean: 123 Departure Impression Primary Impression: Sinusitis Additional Impression: Chronic nasal congestion Disposition: 01 HOME, SELF-CARE Condition: Stable Departure-Patient Inst. Decision time for Depature: 03:33 Referrals: [facility] (PCP) Primary Care Physician DIMITRIS PETERSON APRN (Family) Primary Care Physician Patient Instructions: Sinusitis, Adult (DC), Cough, Runny Nose, and the Common Cold Add. Discharge Instructions: YOU MAY TAKE TYLENOL AND MOTRIN NEEDED FOR PAIN DO NOT TAKE ANY OTHER OVER THE COUNTER MEDICATIONS AT THIS TIME NO NOT TAKE CETIRIZINE ( ZYRTEC ) AT THIS TIME FOLLOW UP WITH [facility] NEXT WEEK FOR FURTHER CARE All discharge instructions reviewed with patient and/or family. Voiced understanding. Scripts Methylprednisolone (Medrol) 4 Mg Tab.ds.pk 4 MG PO UD for 6 Days, #21 PKG PER DOSE PACK INSTRUCTIONS Prov: BAKARI ELIAS DO 10/31/21 Azelastine HCl (Azelastine HCl) 137 Mcg/0.137 Ml [place].pump 137 MCG NS BID, #1 EA Prov: BAKARI ELIAS DO 10/31/21 Fluticasone Propionate (Flonase Allergy Relief) 9.9 Ml [place].susp 2 SPRAY NS DAILY, #1 EACH 2 SPRAYS PER NOSTRIL DAILY X 2 DAYS THEN 1 SPRAY DAILY Prov: BAKARI ELIAS DO 10/31/21 Loratadine/Pseudoephedrine (Claritin-D 12 Hour Tablet) 1 Each Tab.er.12h 1 EACH PO BID, #30 TAB Prov: BAKARI ELIAS DO 10/31/21 Amoxicillin/Potassium Clav (Amox Tr-K Clv 875-125 mg Tab) 1 Each Tablet 1 EACH PO BID for 15 Days, #30 TAB Prov: BAKARI ELIAS DO 10/31/21 BAKARI ELIAS DO Oct 31, 2021 03:37
[2021-10-31] MEDS ORDERED: AUGMENTIN 875 MG TAB (AMOXICILLIN/CLAVULANATE) PO SCH (03:45)
[2021-10-31 03:46] VITALS: BP 168/101
== END 2021-10-31 03:46 | disposition home or self-care (01) ==
LOC: EDUNIT# 02:29 → ER 02:32
DX: J32.9 Chronic sinusitis, unspecified (principal); Z20.822 Contact with and (suspected) exposure to COVID-19
CPT/HCPCS: 87636; 99283